=== PATIENT | male | born 1985 | race Caucasian/White ===

== ENCOUNTER 2023-01-31 13:40 | Emergency (ER) | payer BC ==
[2023-01-31 15:04] LABS: CORONAVIRUS COVID-19 NAA NEGATIVE (NEGATIVE); INFLUENZA A NAA NEGATIVE (NEGATIVE); INFLUENZA B NAA NEGATIVE (NEGATIVE)
== END 2023-01-31 15:43 | disposition home or self-care (01) ==
LOC: MW.ED 13:40
DX: J18.9 Pneumonia, unspecified organism (principal); J32.9 Chronic sinusitis, unspecified; B96.89 Other specified bacterial agents as the cause of diseases classified elsewhere; Z20.822 Contact with and (suspected) exposure to COVID-19
CPT/HCPCS: 0240U; 71046; 99285; 99283

== ENCOUNTER 2024-10-31 18:07 | Emergency (ER) | payer BC | END 2024-10-31 19:29 | disposition home or self-care (01) | LOC: MW.ED 18:07 | DX: J32.9 Chronic sinusitis, unspecified (principal); B96.89 Other specified bacterial agents as the cause of diseases classified elsewhere; Z79.52 Long term (current) use of systemic steroids; Z79.899 Other long term (current) drug therapy; Z75.8 Other problems related to medical facilities and other health care | CPT/HCPCS: 99283 ==